=== PATIENT | male | born 1960 | race Caucasian/White ===

== ENCOUNTER 2017-09-14 07:07 | Inpatient (IN) | payer OTHER ==
[~2017-09-14] VITALS: Ht 188 cm; Wt 111.1 kg
[2017-09-14] VITALS (18 sets, daily range): BP systolic 113–208; BP diastolic 79–116
[2017-09-14] MEDS ORDERED: Sodium Chloride 500ML 500 ML IV ONE (07:29)
[2017-09-14] MEDS ORDERED: Morphine Sulfate 4mg/ml Inj IVP ONE ×3 (07:30→12:15)
--- NOTE | 2017-09-14 07:31 | Emergency Room Report ---
History of Present Illness General Chief Complaint: General Complaint Source: Patient Present Illness HPI Patient presents with complaints of mid abdominal pain radiation across both upper abdomen Pain started about 2:00 in the morning patient reports waking up out of sleep with the pain Patient reports that he has never had any surgeries before He had taken some Gas-X without any relief denies any vomiting he felt mildly nauseous denies any diarrhea denies any other trauma Denies any chest pain or shortness of breath Denies any dysuria frequency Allergies: Coded Allergies: No Known Allergies (Unverified , 09/14/17) Patient History Past Medical History: see triage record Pertinent Family History: none Reviewed Nursing Documentation: PMH: Agreed, PSxH: Agreed Nursing Documentation-PMH Past Medical History: No History, Except For Hx Hypertension: Yes Review of Systems All Other Systems: negative except mentioned in HPI Physical Exam Vital Signs Date Time Temp Pulse Resp B/P (MAP) Pulse Ox O2 Delivery O2 Flow Rate FiO2 09/14/17 07:20 97.7 85 16 186/126 98 Sp02 EP Interpretation: reviewed, normal General Appearance: mild distress - Appears uncomfortable Head: normocephalic, atraumatic Eyes: bilateral eye PERRL, bilateral eye EOMI ENT: hearing grossly normal, normal pharynx, TMs + canals normal, uvula midline Neck: full range of motion, supple, no meningismus, no bony tend Respiratory: lungs clear, normal breath sounds, no rhonchi, no respiratory distress, no retraction, no accessory muscle use Cardiovascular #1: normal peripheral pulses, regular rate, rhythm, no edema, no gallop, no JVD, no murmur Gastrointestinal: normal bowel sounds, non tender - On palpation however subjectively points across the epigastric region and bilateral abdomen, soft, no mass, no organomegaly, non-distended, no guarding, no hernia, no pulsatile mass, no rebound Genitourinary: no CVA tenderness Musculoskeletal: normal inspection Neurologic: oriented x3, responsive, communications engineer III-XII nml as tested, motor strength/ tone normal, sensory intact Psychiatric: mood/affect normal Skin: normal color, no rash, warm/dry, palpation normal Lymphatic: normal inspection, no adenopathy Medical Decision Making Diagnostic Impression: Primary Impression: Cholelithiasis Additional Impression: Intractable abdominal pain ER Course With the history exam and presentation, multiple differentials considered, including but not limited to appendicitis, gastritis, cholecystitis, diverticulitis Given the location of the pain and the patient's risk factors vascular and cardiac pathology also entertained patient's CT does not show any vascular pathology however there are multiple stones in the gallbladder Patient's liver function tests are appropriate however given the discomfort clinical impaction needs to be considered patient required multiple pain medication dosing at this time general surgery was consulted patient requires admission for further care Labs Test 09/14/17 08:03 White Blood Count 8.5 K/UL (4.8-10.8) Red Blood Count 4.64 M/UL (4.70-6.10) Hemoglobin 15.3 G/DL (14.2-18.0) Hematocrit 43.4 % (42.0-52.0) Mean Corpuscular Volume 94 FL (80-99) Mean Corpuscular Hemoglobin 33.1 PG (27.0-31.0) Mean Corpuscular Hemoglobin Concent 35.3 G/DL (32.0-36.0) Red Cell Distribution Width 11.5 % (11.6-14.8) Platelet Count 205 K/UL (150-450) Mean Platelet Volume 5.7 FL (6.5-10.1) Neutrophils (%) (Auto) 74.1 % (45.0-75.0) Lymphocytes (%) (Auto) 18.6 % (20.0-45.0) Monocytes (%) (Auto) 5.2 % (1.0-10.0) Eosinophils (%) (Auto) 0.9 % (0.0-3.0) Basophils (%) (Auto) 1.2 % (0.0-2.0) Prothrombin Time 9.8 SEC (9.30-11.50) Prothromb Time International Ratio 0.9 (0.9-1.1) Activated Partial Thromboplast Time 25 SEC (23-33) Sodium Level 142 MMOL/L (136-145) Potassium Level 4.1 MMOL/L (3.5-5.1) Chloride Level 108 MMOL/L (98-107) Carbon Dioxide Level 28 MMOL/L (21-32) Anion Gap 6 mmol/L (5-15) Blood Urea Nitrogen 17 mg/dL (7-18) Creatinine 1.2 MG/DL (0.55-1.30) Estimat Glomerular Filtration Rate > 60 mL/min (>60) Glucose Level 131 MG/DL (74-106) Calcium Level 9.1 MG/DL (8.5-10.1) Total Bilirubin 0.6 MG/DL (0.2-1.0) Aspartate Amino Transf (AST/SGOT) 25 U/L (15-37) Alanine Aminotransferase (ALT/SGPT) 46 U/L (12-78) Alkaline Phosphatase 60 U/L (46-116) Total Creatine Kinase 95 U/L (26-308) Creatine Kinase MB 2.3 NG/ML (0.0-3.6) Creatine Kinase MB Relative Index 2.4 Troponin I 0.000 ng/mL (0.000-0.056) Total Protein 7.5 G/DL (6.4-8.2) Albumin 4.1 G/DL (3.4-5.0) Globulin 3.4 g/dL Albumin/Globulin Ratio 1.2 (1.0-2.7) Lipase 136 U/L (73-393) EKG Diagnostic Results Rate: normal Rhythm: NSR ST Segments: no acute changes Rhythm Strip Diag. Results EP Interpretation: yes Rate: 77 Rhythm: NSR, no PVC's, no ectopy Chest X-Ray Diagnostic Results Chest X-Ray Diagnostic Results : Chest X-Ray Ordered: Yes # of Views/Limited/Complete: 1 View Indication: Shortness of Breath EP Interpretation: Yes Interpretation: no consolidation, no effusion, no pneumothorax, no acute cardiopulmonary disease Impression: No acute disease Electronically Signed by: Silvia Serrano DO CT/MRI/US Diagnostic Results CT/MRI/US Diagnostic Results : Impression CT abdomen pelvisImpression: Cholelithiasis. Small hiatal hernia Mild fatty liver. Question mild enteritis Normal appendix Small right inguinal hernia containing fat. Atherosclerotic vascular disease Last Vital Signs Date Time Temp Pulse Resp B/P (MAP) Pulse Ox O2 Delivery O2 Flow Rate FiO2 09/14/17 07:20 97.7 85 16 186/126 98 Status: improved Disposition: ADMITTED INPATIENT Condition: Serious SILVIA SERRANO D.O. Sep 14, 2017 07:31
[2017-09-14] MEDS ORDERED: LOSARTAN POTASS50 MG ORAL (08:10)
[2017-09-14] MEDS ORDERED: ANASTROZOLE1 MG ORAL (08:11)
[2017-09-14] MEDS ORDERED: ROSUVASTATIN CA10 MG ORAL (08:11)
[2017-09-14 08:20] LABS: BASOPHILS % (AUTO) 1.2 % (0.0-2.0); EOSINOPHILS % (AUTO) 0.9 % (0.0-3.0); LYMPHOCYTES % (AUTO) 18.6 % (20.0-45.0); MEAN CORPUSCULAR HEMOGLOBIN 33.1 PG (27.0-31.0); MEAN CORPUSCULAR HGB CONC 35.3 G/DL (32.0-36.0); MEAN CORPUSCULAR VOLUME 94 FL (80-99); MEAN PLATELET VOLUME 5.7 FL (6.5-10.1); MONOCYTES % (AUTO) 5.2 % (1.0-10.0); NEUTROPHILS % (AUTO) 74.1 % (45.0-75.0); PLATELET COUNT 205 K/UL (150-450); RED BLOOD COUNT 4.64 M/UL (4.70-6.10); RED CELL DISTRIBUTION WIDTH 11.5 % (11.6-14.8); WHITE BLOOD COUNT 8.5 K/UL (4.8-10.8)
[2017-09-14 08:22] LABS: INR 0.9 (0.9-1.1); PROTHROMBIN TIME 9.8 SEC (9.30-11.50)
[2017-09-14 08:30] LABS: ALANINE AMINOTRANSFERASE 46 U/L (12-78); ALBUMIN/GLOBULIN RATIO 1.2 (1.0-2.7); ANION GAP 6 mmol/L (5-15); ASPARTATE AMINO TRANSFERASE 25 U/L (15-37); CALCIUM 9.1 MG/DL (8.5-10.1); CARBON DIOXIDE 28 MMOL/L (21-32); CHLORIDE 108 MMOL/L (98-107); CREATININE 1.2 MG/DL (0.55-1.30); GLOMERULAR FILTRATION RATE > 60 mL/min (>60); POTASSIUM 4.1 MMOL/L (3.5-5.1); SODIUM 142 MMOL/L (136-145); TOTAL PROTEIN 7.5 G/DL (6.4-8.2)
[2017-09-14 08:39] LABS: CKMB 2.3 NG/ML (0.0-3.6); LIPASE 136 U/L (73-393)
--- NOTE | 2017-09-14 09:40 | Diagnostic Imaging Report ---
Indication: Abdominal pain Technique: Continuous helical transaxial imaging of the abdomen and pelvis was obtained from the lung bases to the pubic symphysis during intravenous contrast administration. Coronal 2-D reformats were also obtained. Study obtained in a Siemens sensation [address] Automatic Exposure Control was utilized. Total Dose length Product (DLP): [address] Dose Index Volume (CTDIvol): 0.15, 18.84 mGy Comparison: None Findings: Mild basilar atelectasis demonstrated. The liver is hypodense. Multiple gallstones are present. Spleen and adrenal glands are unremarkable. Kidneys are unremarkable. A mildly distended segment of small bowel noted in the left side of abdomen. Finding may be spurious or normal. Consider mild enteritis. The appendix is normal. There is no evidence of bowel obstruction. No free fluid or free air identified. There is a small right inguinal hernia containing fat. There is no hydronephrosis. Urinary bladder is unremarkable. Minimal calcification of aorta demonstrated. Small hiatal hernia is present. Impression: Cholelithiasis. Small hiatal hernia Mild fatty liver. Question mild enteritis Normal appendix Small right inguinal hernia containing fat. Atherosclerotic vascular disease The CT scanner at [facility] is accredited by the [employer] and the scans are performed using dose optimization techniques as appropriate to a performed exam including Automatic Exposure control.
--- NOTE | 2017-09-14 12:09 | Diagnostic Imaging Report ---
Indication: Dyspnea Comparison: None A single view chest radiograph was obtained. Findings: Cardiomediastinal appearance is within normal limits for age. Pulmonary vascularity is appropriate. The diaphragmatic contour is smooth and costophrenic angles are sharp. No pleural effusions are identified. The bones are unremarkable. Impression: No acute findings
[2017-09-14] MEDS ORDERED: Enalaprilat 2.5mg/2ml Inj IV ONE (12:15)
[2017-09-14] MEDS ORDERED: Miralax 17gm pkt ORAL PRN (13:30)
[2017-09-14] MEDS ORDERED: Nitroglycerin Subl 0.4mg tab SL PRN (13:30)
[2017-09-14] MEDS ORDERED: Mylanta II UD 30ml ORAL PRN (13:30)
[2017-09-14] MEDS ORDERED: Zosyn 3.375gm/50ml Premix 50 ML IVPB SCH ×2 (14:00→22:00)
[2017-09-14] MEDS: D5 1/2NS 1,000 ML IV SCH (14:59)
[2017-09-14] MEDS: Morphine Sulfate 4mg/ml Inj IVP PRN (14:59)
--- NOTE | 2017-09-14 15:00 | Consultation ---
DATE OF CONSULTATION: 09/14/2017 PREOPERATIVE CONSULTATION REQUESTING PHYSICIAN: Kwame Cassidy M.D. REASON FOR CONSULTATION: Abdominal pain. HISTORY OF PRESENTING ILLNESS: This is a 56-year-old male, who presented to emergency room complaining of abdominal pain since early this morning. The pain was mainly at the epigastrium and right upper quadrant with radiation to the back and now it is mainly on the right upper quadrant. He claimed that he was nauseated, but no vomiting. He stated that in the last six months, he has had two previous episodes, but it has been a mild. He does not know the aggravating factors and denies any history of jaundice. He denies fever, cough, dysuria or frequency. He has a bowel movement today. PAST MEDICAL HISTORY: He denies allergies, asthma, diabetes, cardiac and renal diseases. He has a history of hypertension. PAST SURGICAL HISTORY: None. MEDICATIONS: Please see the medicine reconciliation form. SOCIAL HISTORY: The patient is a 56-year-old male, single with no children. He is investment strategist. Denies smoking or drinking. REVIEW OF SYSTEMS: Noncontributory. PHYSICAL EXAMINATION: GENERAL: The patient appeared to be a well-developed and well-nourished 56-year-old male, lying on the bed complaining of mild abdominal pain. HEENT: Head is normocephalic and atraumatic. Eyes, pupils are equal, round, and reactive to light. Mouth is clear. NECK: There is no palpable thyromegaly or adenopathy. CHEST: Clear to auscultation and percussion. HEART: There is no gallop or murmur. S1 and S2 are within normal limits. ABDOMEN: Soft and flat with mild tenderness at right upper quadrant, but the patient has received pain medication injection. There is no palpable organomegaly. Bowel sounds are audible. GENITAL: Normal. EXTREMITIES: Within normal limits. LABORATORY AND DIAGNOSTIC DATA: CBC is normal. Chemistry is within normal limits. CAT scan of the abdomen has shown multiple gall stones. ASSESSMENT: Cholecystitis and cholelithiasis. PLAN: The patient has been scheduled for a laparoscopy cholecystectomy, possible open cholecystectomy. The risks and benefits have been explained to him. He understood and granted consent. Jada Jaimes M.D. DR: ABY JOB#: [id number] CC:
--- NOTE | 2017-09-14 15:55 | Consultation ---
History of Present Illness General Date patient seen: Sep 14, 2017 Chief Complaint: General Complaint Present Illness HPI 56 year old male presented to ER with complaints of mid abdominal pain radiation across both upper abdomen. He was diagnosed to have acute cholecystitis and will be seen by surgeon soon. Allergies: Coded Allergies: No Known Allergies (Unverified , 09/14/17) Medication History Scheduled Rosuvastatin Calcium (Rosuvastatin Calcium), 10 MG ORAL DAILY, (Reported) Miscellaneous Medications Anastrozole* (Arimidex*), 0.5 MG ORAL, (Reported) Losartan Potassium* (Losartan Potassium*), 100 MG ORAL, (Reported) Patient History Healthcare decision maker Resuscitation status Full Code Advanced Directive on File No Past Medical/Surgical History Past Medical/Surgical History: (1) History of hypertension Review of Systems Constitutional: Reports: no symptoms Eye: Reports: no symptoms Physical Exam General Appearance: WD/WN, no apparent distress Lines, tubes and drains: peripheral HEENT: normocephalic, anicteric Neck: non-tender, normal alignment Respiratory/Chest: chest wall non-tender, lungs clear Breasts: no masses Cardiovascular/Chest: normal peripheral pulses Abdomen: normal bowel sounds, soft Genitourinary/Rectal: normal genital exam Extremities: normal range of motion Skin Exam: normal pigmentation Last 24 Hour Vital Signs Date Time Temp Pulse Resp B/P (MAP) Pulse Ox O2 Delivery O2 Flow Rate FiO2 09/14/17 13:20 100.8 96 20 150/89 95 Room Air 09/14/17 12:58 97.7 95 16 165/96 96 Room Air 09/14/17 12:48 95 16 165/96 96 Room Air 09/14/17 12:23 173/106 09/14/17 11:04 175/108 09/14/17 11:04 175/108 09/14/17 10:11 95 19 178/108 96 Room Air 09/14/17 10:10 97.7 09/14/17 09:31 208/109 09/14/17 09:25 86 14 208/109 97 Room Air 09/14/17 08:32 97.7 09/14/17 07:30 76 18 173/103 100 Room Air 09/14/17 07:20 97.7 85 16 186/126 98 Intake and Output 09/14/17 09/15/17 19:00 07:00 Intake Total 500 ml Balance 500 ml Intake Oral 0 ml IV Total 500 ml Laboratory Tests Test 09/14/17 08:03 White Blood Count 8.5 K/UL (4.8-10.8) Red Blood Count 4.64 M/UL (4.70-6.10) L Hemoglobin 15.3 G/DL (14.2-18.0) Hematocrit 43.4 % (42.0-52.0) Mean Corpuscular Volume 94 FL (80-99) Mean Corpuscular Hemoglobin 33.1 PG (27.0-31.0) H Mean Corpuscular Hemoglobin Concent 35.3 G/DL (32.0-36.0) Red Cell Distribution Width 11.5 % (11.6-14.8) L Platelet Count 205 K/UL (150-450) Mean Platelet Volume 5.7 FL (6.5-10.1) L Neutrophils (%) (Auto) 74.1 % (45.0-75.0) Lymphocytes (%) (Auto) 18.6 % (20.0-45.0) L Monocytes (%) (Auto) 5.2 % (1.0-10.0) Eosinophils (%) (Auto) 0.9 % (0.0-3.0) Basophils (%) (Auto) 1.2 % (0.0-2.0) Prothrombin Time 9.8 SEC (9.30-11.50) Prothromb Time International Ratio 0.9 (0.9-1.1) Activated Partial Thromboplast Time 25 SEC (23-33) Sodium Level 142 MMOL/L (136-145) Potassium Level 4.1 MMOL/L (3.5-5.1) Chloride Level 108 MMOL/L (98-107) H Carbon Dioxide Level 28 MMOL/L (21-32) Anion Gap 6 mmol/L (5-15) Blood Urea Nitrogen 17 mg/dL (7-18) Creatinine 1.2 MG/DL (0.55-1.30) Estimat Glomerular Filtration Rate > 60 mL/min (>60) Glucose Level 131 MG/DL (74-106) H Calcium Level 9.1 MG/DL (8.5-10.1) Total Bilirubin 0.6 MG/DL (0.2-1.0) Aspartate Amino Transf (AST/SGOT) 25 U/L (15-37) Alanine Aminotransferase (ALT/SGPT) 46 U/L (12-78) Alkaline Phosphatase 60 U/L (46-116) Total Creatine Kinase 95 U/L (26-308) Creatine Kinase MB 2.3 NG/ML (0.0-3.6) Creatine Kinase MB Relative Index 2.4 Troponin I 0.000 ng/mL (0.000-0.056) Total Protein 7.5 G/DL (6.4-8.2) Albumin 4.1 G/DL (3.4-5.0) Globulin 3.4 g/dL Albumin/Globulin Ratio 1.2 (1.0-2.7) Lipase 136 U/L (73-393) Height (Feet): 6 Height (Inches): 2.00 Weight (Pounds): 245 Medications Current Medications Medications (Trade) Dose Ordered Sig/Zaid Route PRN Reason Start Time Stop Time Status Last Admin Dose Admin Acetaminophen (Tylenol) 650 mg Q4H PRN ORAL fever 09/14/17 13:30 10/14/17 13:29 09/14/17 15:07 Al Hydroxide/Mg Hydroxide (Mylanta II) 30 ml Q6H PRN ORAL dyspepsia 09/14/17 13:30 10/14/17 13:29 Dextrose (Dextrose 50%) STAT PRN IV Hypoglycemia 09/14/17 13:30 10/14/17 13:29 Dextrose/Sodium Chloride 1,000 ml @ 75 mls/hr [id number] IV 09/14/17 17:40 10/14/17 17:39 09/14/17 14:59 Diphenhydramine HCl (Benadryl) 25 mg Q6H PRN ORAL Itching/Pruritis 09/14/17 13:30 10/14/17 13:29 Heparin Sodium (Porcine) (Heparin 5000 units/ml) 5,000 units EVERY 12 HOURS SUBQ 09/14/17 21:00 10/14/17 20:59 Losartan Potassium (Cozaar) 100 mg DAILY ORAL 09/15/17 09:00 10/15/17 08:59 Morphine Sulfate (Morphine Sulfate) 4 mg Q4H PRN IVP For Pain 09/14/17 14:15 09/21/17 14:14 09/14/17 14:59 Nitroglycerin (Ntg) 0.4 mg Q5M X 3 DOSES PRN SL Prn Chest Pain 09/14/17 13:30 10/14/17 13:29 Ondansetron HCl (Zofran) 4 mg Q6H PRN IVP Nausea & Vomiting 09/14/17 13:30 10/14/17 13:29 Pantoprazole (Protonix) 40 mg DAILY IVP 09/15/17 09:00 10/15/17 08:59 Piperacillin/ Tazobactam/ Dextrose 50 ml @ 12.5 mls/hr Q8H IVPB 09/14/17 16:00 09/21/17 15:59 Polyethylene Glycol (Miralax) 17 gm HSPRN PRN ORAL Constipation 09/14/17 13:30 10/14/17 13:29 Temazepam (Restoril) 15 mg HSPRN PRN ORAL Insomnia 09/14/17 13:30 09/21/17 13:29 Assessment/Plan Problem List: (1) Cholecystitis ICD Codes: K81.9 - Cholecystitis, unspecified SNOMED: 73372992 (2) Intractable abdominal pain ICD Codes: R10.9 - Unspecified abdominal pain SNOMED: 27797922, 314450217 (3) History of hypertension ICD Codes: Z86.79 - Personal history of other diseases of the circulatory system SNOMED: 636124878 Assessment/Plan NPO IV fluids IV abx awaiting surgery consult dvt prophylaxis monitor BP RACH NIELSON Sep 14, 2017 15:55
[2017-09-14] MEDS: Zosyn 3.375gm/50ml Premix 50 ML IVPB SCH (16:34)
--- NOTE | 2017-09-14 16:48 | Consultation ---
Consult Note Consult Note id dic # [id number] TRACY SERVIN M.D. Sep 14, 2017 16:48
--- NOTE | 2017-09-14 17:36 | GI Initial Consult Note ---
History of Present Illness General Date patient seen: Sep 14, 2017 Time patient seen: 17:32 Reason for Hospitalization: General Complaint Referring physician: RACH YODER Reason for Consultation: ABDOMINAL PAIN Present Illness HPI Patient presents with complaints of mid abdominal pain radiation across both upper abdomen Pain started about 2:00 in the morning patient reports waking up out of sleep with the pain Patient reports that he has never had any surgeries before He had taken some Gas-X without any relief denies any vomiting he felt mildly nauseous denies any diarrhea denies any other trauma Denies any chest pain or shortness of breath Denies any dysuria frequency This is a 56-year-old male, who presented to emergency room complaining of abdominal pain since early this morning. The pain was mainly at the epigastrium and right upper quadrant with radiation to the back and now it is mainly on the right upper quadrant. He claimed that he was nauseated, but no vomiting. He stated that in the last six months, he has had two previous episodes, but it has been a mild. He does not know the aggravating factors and denies any history of jaundice. He denies fever, cough, dysuria or frequency. He has a bowel movement today. Pt NPO now awaiting lap fidel. Pt seen on floor, awake A&Ox4 NAD with no active s/sx of N/V/D. CT AP reviewed. Unknown history of endoscopic/colonoscopies. Home Meds Reported Medications Rosuvastatin Calcium (Rosuvastatin Calcium) 10 Mg Tablet, 10 MG ORAL DAILY 09/14/17 Anastrozole* (ARIMIDEX*) 1 Mg Tablet, 0.5 MG ORAL 09/14/17 Losartan Potassium* (LOSARTAN POTASSIUM*) 50 Mg Tablet, 100 MG ORAL 09/14/17 Med list reviewed/reconciled: Yes Allergies: Coded Allergies: No Known Allergies (Unverified , 09/14/17) Patient History History Provided By: Patient, Medical Record H Narrative PAST MEDICAL HISTORY: He denies allergies, asthma, diabetes, cardiac and renal diseases. He has a history of hypertension. Review of Systems All Other Systems: negative except mentioned in HPI Physical Exam Vital Signs Date Time Temp Pulse Resp B/P (MAP) Pulse Ox O2 Delivery O2 Flow Rate FiO2 09/14/17 07:20 97.7 85 16 186/126 98 09/14/17 07:30 Room Air Sp02 EP Interpretation: reviewed, normal Labs Laboratory Tests Test 09/14/17 08:03 White Blood Count 8.5 K/UL (4.8-10.8) Red Blood Count 4.64 M/UL (4.70-6.10) L Hemoglobin 15.3 G/DL (14.2-18.0) Hematocrit 43.4 % (42.0-52.0) Mean Corpuscular Volume 94 FL (80-99) Mean Corpuscular Hemoglobin 33.1 PG (27.0-31.0) H Mean Corpuscular Hemoglobin Concent 35.3 G/DL (32.0-36.0) Red Cell Distribution Width 11.5 % (11.6-14.8) L Platelet Count 205 K/UL (150-450) Mean Platelet Volume 5.7 FL (6.5-10.1) L Neutrophils (%) (Auto) 74.1 % (45.0-75.0) Lymphocytes (%) (Auto) 18.6 % (20.0-45.0) L Monocytes (%) (Auto) 5.2 % (1.0-10.0) Eosinophils (%) (Auto) 0.9 % (0.0-3.0) Basophils (%) (Auto) 1.2 % (0.0-2.0) Prothrombin Time 9.8 SEC (9.30-11.50) Prothromb Time International Ratio 0.9 (0.9-1.1) Activated Partial Thromboplast Time 25 SEC (23-33) Sodium Level 142 MMOL/L (136-145) Potassium Level 4.1 MMOL/L (3.5-5.1) Chloride Level 108 MMOL/L (98-107) H Carbon Dioxide Level 28 MMOL/L (21-32) Anion Gap 6 mmol/L (5-15) Blood Urea Nitrogen 17 mg/dL (7-18) Creatinine 1.2 MG/DL (0.55-1.30) Estimat Glomerular Filtration Rate > 60 mL/min (>60) Glucose Level 131 MG/DL (74-106) H Calcium Level 9.1 MG/DL (8.5-10.1) Total Bilirubin 0.6 MG/DL (0.2-1.0) Aspartate Amino Transf (AST/SGOT) 25 U/L (15-37) Alanine Aminotransferase (ALT/SGPT) 46 U/L (12-78) Alkaline Phosphatase 60 U/L (46-116) Total Creatine Kinase 95 U/L (26-308) Creatine Kinase MB 2.3 NG/ML (0.0-3.6) Creatine Kinase MB Relative Index 2.4 Troponin I 0.000 ng/mL (0.000-0.056) Total Protein 7.5 G/DL (6.4-8.2) Albumin 4.1 G/DL (3.4-5.0) Globulin 3.4 g/dL Albumin/Globulin Ratio 1.2 (1.0-2.7) Lipase 136 U/L (73-393) General Appearance: well appearing, no apparent distress, alert Head: normocephalic EENT: PERRL/EOMI, normal ENT inspection Neck: supple Respiratory: normal breath sounds, no respiratory distress Cardiovascular: normal rate Gastrointestinal: normal inspection, non tender, soft, normal bowel sounds, non -distended Rectal: deferred Genitourinary: deferred Musculoskeletal: normal inspection, back normal Neurologic: normal inspection, alert, oriented x3, responsive Psychiatric: normal inspection, judgement/insight normal, memory normal Skin: normal inspection, normal color, no rash, warm/dry, palpation normal, well hydrated Lymphatic: normal inspection, no adenopathy Current Medications Current Medications Medications (Trade) Dose Ordered Sig/Zaid Route PRN Reason Start Time Stop Time Status Last Admin Dose Admin Acetaminophen (Tylenol) 650 mg Q4H PRN ORAL fever 09/14/17 13:30 10/14/17 13:29 09/14/17 15:07 Al Hydroxide/Mg Hydroxide (Mylanta II) 30 ml Q6H PRN ORAL dyspepsia 09/14/17 13:30 10/14/17 13:29 Clonidine HCl (Catapres) 0.1 mg Q6HR PRN ORAL SBP > 160 09/14/17 16:15 10/14/17 16:14 09/14/17 16:48 Dextrose (Dextrose 50%) STAT PRN IV Hypoglycemia 09/14/17 13:30 10/14/17 13:29 Dextrose/Sodium Chloride 1,000 ml @ 75 mls/hr [id number] IV 09/14/17 17:40 10/14/17 17:39 09/14/17 14:59 Diphenhydramine HCl (Benadryl) 25 mg Q6H PRN ORAL Itching/Pruritis 09/14/17 13:30 10/14/17 13:29 Heparin Sodium (Porcine) (Heparin 5000 units/ml) 5,000 units EVERY 12 HOURS SUBQ 09/14/17 21:00 10/14/17 20:59 Losartan Potassium (Cozaar) 100 mg DAILY ORAL 09/15/17 09:00 10/15/17 08:59 Morphine Sulfate (Morphine Sulfate) 4 mg Q4H PRN IVP For Pain 09/14/17 14:15 09/21/17 14:14 09/14/17 14:59 Nitroglycerin (Ntg) 0.4 mg Q5M X 3 DOSES PRN SL Prn Chest Pain 09/14/17 13:30 10/14/17 13:29 Ondansetron HCl (Zofran) 4 mg Q6H PRN IVP Nausea & Vomiting 09/14/17 13:30 10/14/17 13:29 Pantoprazole (Protonix) 40 mg DAILY IVP 09/15/17 09:00 10/15/17 08:59 Piperacillin/ Tazobactam/ Dextrose 50 ml @ 12.5 mls/hr Q8H IVPB 09/14/17 16:00 09/21/17 15:59 09/14/17 16:34 Polyethylene Glycol (Miralax) 17 gm HSPRN PRN ORAL Constipation 09/14/17 13:30 10/14/17 13:29 Temazepam (Restoril) 15 mg HSPRN PRN ORAL Insomnia 09/14/17 13:30 09/21/17 13:29 GI: Plan Problems: (1) Cholelithiasis (2) Intractable abdominal pain Plan fu surgical recs >> pt scheduled for lap fidel today maintain NPO + IVFs pain mgmt ppi cont ppi bowel regime fu labs outpatient GI procedures Discussed with Dr. Vaughn. Thank you for this patient referral, we will follow. Tyesha Hawthorne N.P. Sep 14, 2017 17:36
[2017-09-14] MEDS ORDERED: Propofol 200mg/20ml IV ONE (17:45)
[2017-09-14] MEDS ORDERED: Dexamethasone 4mg/ml vial ONE (17:45)
[2017-09-14] MEDS ORDERED: LR 1000ml ONE (17:45)
[2017-09-14] MEDS ORDERED: Lidocaine 1% MPF 10mg/ml 5ml ONE (17:45)
[2017-09-14] MEDS ORDERED: fentaNYL 100 mcg/2 mL IV ONE (17:45)
[2017-09-14] MEDS ORDERED: Glycopyrrolate 0.2mg/ml 1ml Vial ONE (17:45)
[2017-09-14] MEDS ORDERED: Zemuron 50mg/5ml Inj IV ONE (17:45)
[2017-09-14] MEDS ORDERED: NS Irrig 1000ml ONE (17:45)
[2017-09-14] MEDS ORDERED: Neostigmine 1mg/ml 10ml Inj ONE (17:45)
[2017-09-14] MEDS ORDERED: Alfentanil 2ml Inj ONE (17:45)
[2017-09-14] MEDS ORDERED: LR 1000ml 1,000 ML IVLG SCH (17:47)
--- NOTE | 2017-09-14 17:47 | Anethesia Preoperative Eval ---
Anesthesia Pre-op PMH/ROS General Date of Evaluation: Sep 14, 2017 Time of Evaluation: 17:46 Anesthesiologist: Wilmer ASA Score: ASA 3 - Emergency Mallampati Score Class I : Soft palate, uvula, fauces, pillars visible Class II: Soft palate, uvula, fauces visible Class III: Soft palate, base of uvula visible Class IV: Only hard plate visible Mallampati Classification: Class II Surgeon: Fiona Diagnosis: Acute Cholecystitis Anesthesia History: none Family History: no anesthesia problems Allergies: Coded Allergies: No Known Allergies (Unverified , 09/14/17) Medications: see eMAR Past Medical History Cardiovascular: Reports: HTN Other: obesity - BMI 33 Anesthesia Pre-op Phys. Exam Physician Exam Last Vital Signs Date Time Temp Pulse Resp B/P (MAP) Pulse Ox O2 Delivery O2 Flow Rate FiO2 09/14/17 16:48 161/116 09/14/17 16:16 99.0 104 21 96 Room Air Constitutional: NAD Neurologic: CN 2-12 intact Cardiovascular: RRR Respiratory: CTA Gastrointestinal: S/NT/ND Airway Exam Mallampati Score: Class II MO: limited ROM: limited Teeth: intact Anesthesia Pre-op A/P Labs Hematology Test 09/14/17 08:03 White Blood Count 8.5 K/UL (4.8-10.8) Red Blood Count 4.64 M/UL (4.70-6.10) L Hemoglobin 15.3 G/DL (14.2-18.0) Hematocrit 43.4 % (42.0-52.0) Mean Corpuscular Volume 94 FL (80-99) Mean Corpuscular Hemoglobin 33.1 PG (27.0-31.0) H Mean Corpuscular Hemoglobin Concent 35.3 G/DL (32.0-36.0) Red Cell Distribution Width 11.5 % (11.6-14.8) L Platelet Count 205 K/UL (150-450) Mean Platelet Volume 5.7 FL (6.5-10.1) L Neutrophils (%) (Auto) 74.1 % (45.0-75.0) Lymphocytes (%) (Auto) 18.6 % (20.0-45.0) L Monocytes (%) (Auto) 5.2 % (1.0-10.0) Eosinophils (%) (Auto) 0.9 % (0.0-3.0) Basophils (%) (Auto) 1.2 % (0.0-2.0) Coagulation Test 09/14/17 08:03 Prothrombin Time 9.8 SEC (9.30-11.50) Prothromb Time International Ratio 0.9 (0.9-1.1) Activated Partial Thromboplast Time 25 SEC (23-33) Chemistry Test 09/14/17 08:03 Sodium Level 142 MMOL/L (136-145) Potassium Level 4.1 MMOL/L (3.5-5.1) Chloride Level 108 MMOL/L (98-107) H Carbon Dioxide Level 28 MMOL/L (21-32) Anion Gap 6 mmol/L (5-15) Blood Urea Nitrogen 17 mg/dL (7-18) Creatinine 1.2 MG/DL (0.55-1.30) Estimat Glomerular Filtration Rate > 60 mL/min (>60) Glucose Level 131 MG/DL (74-106) H Calcium Level 9.1 MG/DL (8.5-10.1) Total Bilirubin 0.6 MG/DL (0.2-1.0) Aspartate Amino Transf (AST/SGOT) 25 U/L (15-37) Alanine Aminotransferase (ALT/SGPT) 46 U/L (12-78) Alkaline Phosphatase 60 U/L (46-116) Total Creatine Kinase 95 U/L (26-308) Creatine Kinase MB 2.3 NG/ML (0.0-3.6) Creatine Kinase MB Relative Index 2.4 Troponin I 0.000 ng/mL (0.000-0.056) Total Protein 7.5 G/DL (6.4-8.2) Albumin 4.1 G/DL (3.4-5.0) Globulin 3.4 g/dL Albumin/Globulin Ratio 1.2 (1.0-2.7) Lipase 136 U/L (73-393) Risk Assessment & Plan Assessment: ASA 3E Plan: GA, BIS, GlideScope Status Change Before Surgery: No Pre-Antibiotics Dru Grams Ancef IV Given Within 1 Hr of Incision: Yes Time Given: 18:02 Eder Guillen MD Sep 14, 2017 17:47
--- NOTE | 2017-09-14 17:51 | Pre-Procedure Note/Attestation ---
Pre-Procedure Note/Attestation Complete Prior to Procedure Planned Procedure: not applicable Procedure Narrative: Laparoscopic Cholecystectomy possible open Cholecystectomy Indications for Procedure Pre-Operative Diagnosis: Cholecystitis & Cholelithiasis Attestation I attest that I discussed the nature of the procedure; its benefits; risks and complications; and alternatives (and the risks and benefits of such alternatives ), prior to the procedure, with the patient (or the patient's legal guest experience representative). I attest that, if there was a reasonable possibility of needing a blood transfusion, the patient (or the patient's legal guest experience representative) was given the [facility] standardized written summary, pursuant to the Aditya Arlen Blood Safety Act ([place] Health and Safety Code # 1645, as amended). I attest that I re-evaluated the patient just prior to the surgery and that there has been no change in the patient's H&P, except as documented below: EMILY ABREU Sep 14, 2017 17:51
[2017-09-14] MEDS ORDERED: NS Irrig 1000ml IRRIG ONE (17:55)
[2017-09-14] MEDS ORDERED: Bupivacaine 0.25% Inj 30ml INJ ONE (17:59)
[2017-09-14] MEDS ORDERED: Metoclopramide 10mg/2ml Inj IVP PRN (18:00)
[2017-09-14] MEDS ORDERED: Norco 5mg/325mg tab ORAL PRN (18:00)
[2017-09-14] MEDS ORDERED: Ketorolac 30mg Inj IV PRN (18:00)
[2017-09-14] MEDS ORDERED: Hydromorphone 0.5mg/0.5ml inj IVP PRN (18:00)
[2017-09-14] MEDS ORDERED: oxyCODONE HCL/Acetaminophen 5/325mg ORAL PRN (18:00)
[2017-09-14] MEDS ORDERED: Atropine Inj 1mg/10ml Syr IV PRN (18:00)
[2017-09-14] MEDS ORDERED: DiphenhydrAMINE 50mg/ml Inj IVP PRN (18:00)
[2017-09-14] MEDS ORDERED: fentaNYL 100 mcg/2 mL IV PRN (18:00)
[2017-09-14] MEDS ORDERED: Midazolam 2mg/2ml Inj IVP PRN (18:00)
[2017-09-14] MEDS ORDERED: Ketorolac 60mg Inj IV PRN (18:00)
[2017-09-14] MEDS ORDERED: LORazepam Inj 2mg/ml 1ml IV PRN (18:00)
[2017-09-14] MEDS ORDERED: Norco 7.5mg/325mg tab ORAL PRN (18:00)
[2017-09-14] MEDS ORDERED: Acetaminophen (Non formulary) 100 ML IV ONE (18:15)
--- NOTE | 2017-09-14 19:16 | History & Physical ---
History and Physical History & Physicial Dictated for Int Med-Dr Cassidy no. [id number]. KAILEE LOONEY Sep 14, 2017 19:16
--- NOTE | 2017-09-14 19:22 | Brief Operative Note ---
Immediate Post Operative Note Operative Note Pre-op Diagnosis: Cholecystitis & Cholelithiasis Procedure: Laparoscopic Cholecystectomy Post-op Diagnosis: Hydropse of gallbladder Surgeon: MD Danna Brush Holder Assembler: none Anesthesiologist: Dr. Joy Anesthesia: general Specimen: yes Complications: none Condition: stable Fluids: per anesthesialogist Estimated Blood Loss: minimal Drains: none Implant(s) used?: No EMILY ABREU Sep 14, 2017 19:22
--- NOTE | 2017-09-14 19:29 | Immediate Post-Op Evaluation ---
Immediate Post-Op Evalulation Immediate Post-Op Evalulation Procedure: Laparoscopic Cholecystectomy Date of Evaluation: Sep 14, 2017 Time of Evaluation: 19:40 IV Fluids: 800 NS Blood Products: 0 Estimated Blood Loss: 20 Urinary Output: 0 Blood Pressure Systolic: 135 Blood Pressure Diastolic: 84 Pulse Rate: 109 Respiratory Rate: 16 O2 Sat by Pulse Oximetry: 94 Temperature (Fahrenheit): 99 Pain Score (1-10): 2 Nausea: No Vomiting: No Complications 0 Patient Status: awake, reacts, patent, extubated, none Hydration Status: adequate Dru Gram Ancef IV Given Within 1 Hr of Incision: Yes Time Given: 18:02 Eder Guillen MD Sep 14, 2017 19:29
[2017-09-14] MEDS ORDERED: HYDROmorphone 1mg/ml Carpuject IVP PRN (19:30)
[2017-09-14] MEDS ORDERED: Acetaminophen 650 MG SUPP RECTAL PRN (19:30)
[2017-09-14] MEDS: Potassium Chloride 20 MEQ in 1/2 NS 1000ml 1,000 ML IV SCH (20:30)
--- NOTE | 2017-09-14 21:15 | Operative Note - Dictated ---
DATE OF OPERATION: 09/14/2017 PREOPERATIVE DIAGNOSES: Cholecystitis and cholelithiasis. POSTOPERATIVE DIAGNOSES: 1. Cholelithiasis. 2. Hydrops with impacted stone in the neck. OPERATION: Laparoscopic cholecystectomy. COMPLICATION: None. SURGEON: Jada Jaimes M.D. CLOSING SPECIALIST: None. ANESTHESIA: General with endotracheal tube. ANESTHESIOLOGIST: Eder Guillen M.D. INDICATION: This is a 56-year-old male, who presented to emergency room complaining of abdominal pain from early this morning. This pain was in the epigastrium and right upper quadrant with radiation to his back and was associated with nausea. Physical examination showed mild tenderness at right upper quadrant. CAT scan of the abdomen showed cholelithiasis. CBC and chemistry was normal. The patient was started on conservative treatment, but he continued complaining of pain, so the decision was made for a laparoscopic cholecystectomy, possible open cholecystectomy. DESCRIPTION OF PROCEDURE: The patient was placed supine on the operating table and after general anesthesia with endotracheal tube, the abdomen was properly prepped and draped. Initially, a small incision was given below the umbilicus through which the Veress needle was introduced into the intraperitoneal cavity. This cavity was insufflated up to 15 mmHg. The Veress needle was removed and a 5 mm trocar was placed in the intraperitoneal cavity through the incision below the umbilicus. Laparoscopic camera was introduced into the intraperitoneal cavity through the trocar below the umbilicus. Under direct vision, the working trocar was placed at the epigastrium and 5 mm trocars were placed at the right upper quadrant and right flank. Initially, rapid exploration was performed which showed the diaphragms to be normal. The part of the stomach which could be seen was normal and liver had mild fatty infiltrate and the gallbladder was distended and inflamed. The bowels were covered with omentum. Initially, the gallbladder was severely distended. It was aspirated with the help of the endoscopy needle, which showed very light bile showing the beginning of the hydrops. Fundus of the gallbladder was grasped with a grasper from the trocar site at the right flank and the fundus was retracted cephalad and lateral. At this time, it was noticed that there was a very large stone impacted in the neck of the gallbladder. With difficulty, we managed to finally move that stone from the neck and the neck was grasped with another grasper and Calot's triangle was exposed. The neck of the gallbladder was flapped over the hilum of the gallbladder. This was lifted up and then gradually, blunt dissection was performed at the Calot's triangle and finally the cystic duct was identified and isolated. The junction to the gallbladder was exposed. Then, the cystic duct was doubly ligated with a hemoclip and was transected. The cystic artery was dissected and it was doubly ligated with a hemoclip and was transected. After this, the gallbladder was gradually released from the gallbladder bed towards the fundus and was completely removed from the gallbladder bed. The gallbladder contained few very large stones and to remove it from the intraperitoneal cavity, we had to extend the incision in epigastrium. Finally, the gallbladder was removed from the intraperitoneal cavity through the incision at epigastrium, but during the process, the gallbladder ruptured and the stones were released, so all the stones were gradually removed. Another exploration was performed. There was no bleeding or complication and there was no more retained stone. The intraperitoneal cavity was thoroughly irrigated with antibiotic solution and then another exploration was performed. The trocars were removed under direct vision. The incision at the fascia at the epigastrium was approximated with running suture of #0 Vicryl. The incision at the epigastrium was thoroughly irrigated with antibiotic solution and Betadine and then the incisions were infiltrated with total of 30 mL of Marcaine 0.25%. The subcutaneous tissue was approximated with 4-0 chromic. The skin incisions were approximated with running subcuticular suture of 4-0 chromic. The patient tolerated the procedure very well and was transferred to recovery room in stable condition and extubated. The sponge and needle count were correct. Estimated blood loss is about 5 mL. Condition of the patient at the end of procedure is stable. Jada Jaimes M.D. DR: MILI JOB#: [id number] CC:
--- NOTE | 2017-09-14 22:30 | Consultation ---
DATE OF CONSULTATION: 09/14/2017 INFECTIOUS DISEASES CONSULTATION CONSULTING PHYSICIAN: Kris Sibley M.D. REQUESTING PHYSICIAN: Kwame Cassidy M.D. REASON FOR CONSULTATION: Evaluation of the patient for cholecystitis, fever, and possible need for antibiotics. HISTORY OF PRESENT ILLNESS: The patient is a 56-year-old male with no significant past medical history who was admitted to this medical center due to abdominal pain started this morning mostly in the upper abdomen that later localized mostly in the right upper quadrant. CT scan showed evidence of cholelithiasis. A surgical consultation has been requested and there is a plan for cholecystectomy later today. Infectious Disease consultation has been requested for further evaluation of the patient and antibiotic management. PAST MEDICAL HISTORY: Hypertension. MEDICATIONS: Zosyn. ALLERGIES: No known drug allergies. SOCIAL HISTORY: The patient lives at home. FAMILY HISTORY: Noncontributory. REVIEW OF SYSTEMS: HEENT: No recent change in vision or hearing. PULMONARY: No cough or shortness of breath. CARDIOVASCULAR: No chest pain or palpitations. GASTROINTESTINAL/ABDOMEN: As mentioned above. The patient feels nauseous. No vomiting or diarrhea. EXTREMITIES: No cyanosis. GENITOURINARY: No dysuria. PHYSICAL EXAMINATION: VITAL SIGNS: Temperature 100.8 degrees, pulse 86, respiratory rate 18, and blood pressure 161/116. HEENT: No pale conjunctivae. No icterus. NECK: No lymphadenopathy. CHEST: Clear. HEART: S1 and S2. ABDOMEN: Soft, obese. Mild right upper quadrant tenderness. EXTREMITIES: No cyanosis. LABORATORY AND DIAGNOSTIC DATA: WBC 8.5, hemoglobin 13, and platelets 205. BUN 17 and creatinine 1.2. Liver function tests are unremarkable. CT scan of the abdomen showed cholelithiasis. ASSESSMENT: The patient is a 56-year-old male with: 1. Right upper quadrant tenderness. 2. Possible cholecystitis. 3. Cholelithiasis. 4. Low-grade fever. PLAN: 1. We will continue the patient on IV Zosyn. 2. Monitor CBC. 3. Monitor BMP. 4. Monitor amylase and lipase. 5. We will follow. 6. Plan of cholecystectomy as per surgeon. 7. Based on patient's clinical course and labs, we will do further recommendation. Thank you, Dr. Chand, for allowing me to participate in the care of this patient. I will follow the patient with you during this hospitalization. Kris Sibley M.D. DR: PABLO JOB#: [id number] CC:
[2017-09-14] MEDS: Metoclopramide 10mg/2ml Inj IM SCH (22:34)
[2017-09-14] MEDS: Pantoprazole Inj IVP SCH (22:34)
[2017-09-14] MEDS: Heparin 5000 units/ml inj SUBQ SCH (22:36)
[2017-09-15] VITALS: BP 127/81
--- NOTE | 2017-09-15 | History and Physical Report ---
DATE OF ADMISSION: 09/14/2017 CHIEF COMPLAINT: The patient is a 56-year-old white male, who presents with a chief complaint of abdominal pain. HISTORY OF PRESENT ILLNESS: It began last evening. The patient began to experience bilateral upper quadrant pain. The patient denies nausea or vomiting. The pain awoke the patient from sleep. The patient took Mylicon without relief. The patient presented to [facility]. The patient was admitted for abdominal pain to rule out cholelithiasis. PAST MEDICAL HISTORY: Significant for: 1. Hypertension. 2. Hypercholesterolemia. PAST SURGICAL HISTORY: The patient denies. CURRENT MEDICATIONS: 1. Rosuvastatin 10 mg one tablet p.o. daily at bedtime. 2. Losartan 100 mg one tablet p.o. daily. 3. Arimidex 1 mg one tablet p.o. daily. ALLERGIES: No known drug allergies. SOCIAL HISTORY: The patient is single. The patient denies tobacco or alcohol use. REVIEW OF SYSTEMS: CONSTITUTIONAL: The patient denies weight loss or weight gain. The patient denies fevers or chills. HEENT: The patient denies ear or throat pain. The patient denies headache. CARDIOVASCULAR: The patient denies palpitations or chest pain. CHEST: The patient denies wheezing or shortness of breath. ABDOMINAL: The patient complains of bilateral upper quadrant pain as above. The patient denies nausea, vomiting, diarrhea, or constipation. GENITOURINARY: The patient denies dysuria or increased frequency of urination. NEUROMUSCULAR: The patient denies seizures or generalized weakness. PHYSICAL EXAMINATION: VITAL SIGNS: Temperature 97.7, respirations 16, pulse 95, and blood pressure 165/96. GENERAL: The patient is a well-developed, well-nourished, white male, in no apparent distress. HEENT: Eyes, pupils are equal and responsive to light and accommodation. Extraocular movements are intact. NECK: Supple without lymphadenopathy. CHEST: Lungs are clear to auscultation bilaterally without wheezes or rales. CARDIOVASCULAR: Regular rate. S1 and S2 are normal without murmurs, rubs, or gallops. ABDOMEN: Soft, nontender, and nondistended with decreased bowel sounds. There is pain to palpation in bilateral upper quadrants. There is no rebound or guarding. EXTREMITIES: Negative for clubbing, cyanosis, or edema. RECTAL: Refused. GENITAL: Refused. NEUROLOGIC: Cranial nerves II to XII are grossly intact without focal deficits. Motor strength is 5/5 bilaterally. DTR reflexes are 2+ plantar. LABORATORY STUDIES: WBC is 8.5, hemoglobin 15.3, hematocrit 43.4, and platelets 205,000. Sodium is 142, potassium 4.1, chloride 108, CO2 28, BUN 17, creatinine 1.2, and glucose 131. DIAGNOSTIC DATA: A CT scan of the abdomen revealed cholelithiasis. ASSESSMENT: This is a 56-year-old white male: 1. Abdominal pain. 2. Cholelithiasis. 3. Hypertension. 4. Hypercholesterolemia. TREATMENT: 1. Cholelithiasis. A Surgery consultation has been obtained with Dr. Jaimes. We will follow recommendation of Surgery. A Gastroenterology consultation has been obtained with Dr. Mac Vaughn. 2. Hypertension. Continue losartan as above. 3. Hypercholesteremia. Continue simvastatin as above. Jorge Foster M.D. DR: Gaudencio JOB#: [id number] CC:
[2017-09-15] MEDS: Morphine Sulfate 4mg/ml Inj IVP PRN (00:19)
[2017-09-15] MEDS: Zosyn 3.375gm/50ml Premix 50 ML IVPB SCH ×2 (00:20→08:27)
[2017-09-15 04:00] VITALS: BP 110/66
[2017-09-15] MEDS: Potassium Chloride 20 MEQ in 1/2 NS 1000ml 1,000 ML IV SCH (06:32)
[2017-09-15] MEDS: Metoclopramide 10mg/2ml Inj IM SCH ×2 (06:36→14:00)
[2017-09-15] MEDS: D5 1/2NS 1,000 ML IV SCH (07:08)
[2017-09-15 07:23] LABS: ALANINE AMINOTRANSFERASE 87 U/L (12-78); ALBUMIN/GLOBULIN RATIO 1.1 (1.0-2.7); AMYLASE 48 U/L (25-115); ANION GAP 10 mmol/L (5-15); ASPARTATE AMINO TRANSFERASE 56 U/L (15-37); CALCIUM 8.8 MG/DL (8.5-10.1); CARBON DIOXIDE 23 MMOL/L (21-32); CHLORIDE 103 MMOL/L (98-107); CREATININE 1.4 MG/DL (0.55-1.30); GLOMERULAR FILTRATION RATE 52.8 mL/min (>60); LIPASE 80 U/L (73-393); POTASSIUM 4.5 MMOL/L (3.5-5.1); SODIUM 136 MMOL/L (136-145); TOTAL PROTEIN 7.3 G/DL (6.4-8.2)
[2017-09-15 07:39] LABS: BILIRUBIN,DIRECT 0.2 MG/DL (0.0-0.3)
[2017-09-15 07:45] LABS: MEAN CORPUSCULAR HEMOGLOBIN 30.7 PG (27.0-31.0); MEAN CORPUSCULAR HGB CONC 32.9 G/DL (32.0-36.0); MEAN CORPUSCULAR VOLUME 93 FL (80-99); MEAN PLATELET VOLUME 5.7 FL (6.5-10.1); PLATELET COUNT 205 K/UL (150-450); RED BLOOD COUNT 4.68 M/UL (4.70-6.10); RED CELL DISTRIBUTION WIDTH 11.4 % (11.6-14.8)
[2017-09-15 08:00] VITALS: BP 119/81
[2017-09-15] MEDS: Pantoprazole Inj IVP SCH (08:27)
[2017-09-15] MEDS: Heparin 5000 units/ml inj SUBQ SCH (08:34)
[2017-09-15] MEDS ORDERED: Losartan 50mg tab ORAL SCH (09:00)
[2017-09-15] MEDS ORDERED: Pantoprazole Inj IVP SCH (09:00)
[2017-09-15 09:47] LABS: BAND NEUTROPHILS % (MANUAL) 0 % (0-8); BASOPHILS % (MANUAL) 0 % (0-2); EOSINOPHILS % (MANUAL) 0 % (0-3); LYMPHOCYTES % (MANUAL) 8 % (20-45); NEUTROPHILS % (MANUAL) 90 % (45-75); PLATELET ESTIMATE ADEQUATE; PLATELET MORPHOLOGY NORMAL; TOTAL CELLS COUNTED 100
--- NOTE | 2017-09-15 10:09 | Infectious Diseases Prog Note ---
Assessment/Plan Assessment/Plan ASSESSMENT: The patient is a 56-year-old male with: Cholelithiasis , Hydropic gallbladder SP lap-fidel SP Right upper quadrant tenderness Low-grade fever, SP mils transaminitis Afebrile PLAN: DC IV Zosyn d# 2 , after last dose today Monitor CBC Monitor BMP Monitor amylase and lipase, LFT Subjective Allergies: Coded Allergies: No Known Allergies (Unverified , 09/14/17) Subjective post op d# 1 Objective Vital Signs Last 24 Hour Vital Signs Date Time Temp Pulse Resp B/P (MAP) Pulse Ox O2 Delivery O2 Flow Rate FiO2 09/15/17 08:26 120/75 09/15/17 08:00 98.1 83 20 119/81 99 Nasal Cannula 2.0 09/15/17 07:43 Nasal Cannula 3.0 32 09/15/17 07:43 95 Nasal Cannula 3.0 32 09/15/17 04:00 97.8 69 17 110/66 96 Nasal Cannula 2.0 09/15/17 00:00 97.7 86 18 127/81 96 Nasal Cannula 3.0 09/14/17 21:50 97.1 89 19 150/95 98 Nasal Cannula 3.0 09/14/17 21:20 97.5 82 19 134/91 96 Nasal Cannula 3.0 09/14/17 21:05 97.4 86 19 135/96 96 Nasal Cannula 3.0 09/14/17 20:50 97.3 84 19 134/88 97 Nasal Cannula 3.0 09/14/17 20:35 97.2 85 19 140/92 93 Nasal Cannula 2.0 09/14/17 20:25 98.0 93 19 139/89 95 Nasal Cannula 3.0 09/14/17 20:15 94 16 142/85 96 Nasal Cannula 3.0 09/14/17 20:00 Nasal Cannula 3.0 32 09/14/17 20:00 98 18 130/97 96 Nasal Cannula 3.0 09/14/17 20:00 96 Nasal Cannula 3.0 32 09/14/17 19:50 89 16 145/85 97 Nasal Cannula 3.0 09/14/17 19:39 91 15 140/87 97 Nasal Cannula 3.0 09/14/17 19:34 92 16 136/79 98 Simple Mask 6.0 09/14/17 19:29 99.0 108 17 113/84 95 Simple Mask 6.0 09/14/17 19:29 109 16 94 09/14/17 16:48 161/116 09/14/17 16:16 99.0 104 21 161/116 96 Room Air 09/14/17 16:06 99.0 09/14/17 13:20 100.8 96 20 150/89 95 Room Air 09/14/17 12:58 97.7 95 16 165/96 96 Room Air 09/14/17 12:48 95 16 165/96 96 Room Air 09/14/17 12:23 173/106 09/14/17 11:04 175/108 09/14/17 11:04 175/108 09/14/17 10:11 95 19 178/108 96 Room Air 09/14/17 10:10 97.7 Height (Feet): 6 Height (Inches): 2.00 Weight (Pounds): 245 HEENT: mucous membranes moist Respiratory/Chest: no accessory muscle use Cardiovascular: regularly irregular Abdomen: no organomegaly Laboratory Tests Test 09/15/17 06:25 White Blood Count 12.0 K/UL (4.8-10.8) H Red Blood Count 4.68 M/UL (4.70-6.10) L Hemoglobin 14.4 G/DL (14.2-18.0) Hematocrit 43.7 % (42.0-52.0) Mean Corpuscular Volume 93 FL (80-99) Mean Corpuscular Hemoglobin 30.7 PG (27.0-31.0) Mean Corpuscular Hemoglobin Concent 32.9 G/DL (32.0-36.0) Red Cell Distribution Width 11.4 % (11.6-14.8) L Platelet Count 205 K/UL (150-450) Mean Platelet Volume 5.7 FL (6.5-10.1) L Neutrophils (%) (Auto) % (45.0-75.0) Lymphocytes (%) (Auto) % (20.0-45.0) Monocytes (%) (Auto) % (1.0-10.0) Eosinophils (%) (Auto) % (0.0-3.0) Basophils (%) (Auto) % (0.0-2.0) Differential Total Cells Counted 100 Neutrophils % (Manual) 90 % (45-75) H Lymphocytes % (Manual) 8 % (20-45) L Monocytes % (Manual) 2 % (1-10) Eosinophils % (Manual) 0 % (0-3) Basophils % (Manual) 0 % (0-2) Band Neutrophils 0 % (0-8) Platelet Estimate Adequate Platelet Morphology Normal Activated Partial Thromboplast Time 26 SEC (23-33) Sodium Level 136 MMOL/L (136-145) Potassium Level 4.5 MMOL/L (3.5-5.1) Chloride Level 103 MMOL/L (98-107) Carbon Dioxide Level 23 MMOL/L (21-32) Anion Gap 10 mmol/L (5-15) Blood Urea Nitrogen 18 mg/dL (7-18) Creatinine 1.4 MG/DL (0.55-1.30) H Estimat Glomerular Filtration Rate 52.8 mL/min (>60) Glucose Level 143 MG/DL (74-106) H Calcium Level 8.8 MG/DL (8.5-10.1) Total Bilirubin 1.1 MG/DL (0.2-1.0) H Direct Bilirubin 0.2 MG/DL (0.0-0.3) Aspartate Amino Transf (AST/SGOT) 56 U/L (15-37) H Alanine Aminotransferase (ALT/SGPT) 87 U/L (12-78) H Alkaline Phosphatase 49 U/L (46-116) Total Protein 7.3 G/DL (6.4-8.2) Albumin 3.8 G/DL (3.4-5.0) Globulin 3.5 g/dL Albumin/Globulin Ratio 1.1 (1.0-2.7) Amylase Level 48 U/L (25-115) Lipase 80 U/L (73-393) Current Medications Medications (Trade) Dose Ordered Sig/Zaid Route PRN Reason Start Time Stop Time Status Last Admin Dose Admin Acetaminophen (Tylenol) 650 mg Q4H PRN ORAL fever 09/14/17 13:30 10/14/17 13:29 09/14/17 15:07 Acetaminophen (Tylenol) 650 mg Q4H PRN RECTAL Mild Pain (Pain Scale 1-3) 09/14/17 19:30 10/14/17 19:29 Al Hydroxide/Mg Hydroxide (Mylanta II) 30 ml Q6H PRN ORAL dyspepsia 09/14/17 13:30 10/14/17 13:29 Bisacodyl (Dulcolax) 10 mg ONCE ONCE RECTAL 09/15/17 10:30 09/15/17 10:31 Clonidine HCl (Catapres) 0.1 mg Q6HR PRN ORAL SBP > 160 09/14/17 16:15 10/14/17 16:14 09/14/17 16:48 Dextrose (Dextrose 50%) STAT PRN IV Hypoglycemia 09/14/17 13:30 10/14/17 13:29 Dextrose/Sodium Chloride 1,000 ml @ 75 mls/hr [id number] IV 09/14/17 17:40 10/14/17 17:39 09/15/17 07:08 Diphenhydramine HCl (Benadryl) 25 mg Q6H PRN ORAL Itching/Pruritis 09/14/17 13:30 10/14/17 13:29 Heparin Sodium (Porcine) (Heparin 5000 units/ml) 5,000 units EVERY 12 HOURS SUBQ 09/14/17 21:00 10/14/17 20:59 09/15/17 08:34 Hydromorphone HCl (Dilaudid) 1 mg Q4H PRN IVP For Pain 09/14/17 19:30 09/21/17 19:29 Losartan Potassium (Cozaar) 100 mg DAILY ORAL 09/15/17 09:00 10/15/17 08:59 09/15/17 08:26 Metoclopramide HCl (Reglan) 10 mg EVERY 8 HOURS IM 09/14/17 22:00 10/14/17 21:59 09/15/17 06:36 Morphine Sulfate (Morphine Sulfate) 4 mg Q4H PRN IVP For Pain 09/14/17 14:15 09/21/17 14:14 09/15/17 00:19 Nitroglycerin (Ntg) 0.4 mg Q5M X 3 DOSES PRN SL Prn Chest Pain 09/14/17 13:30 10/14/17 13:29 Ondansetron HCl (Zofran) 4 mg Q6H PRN IVP Nausea & Vomiting 09/14/17 13:30 10/14/17 13:29 Pantoprazole (Protonix) 40 mg DAILY IVP 11/9/17 20:00 10/14/17 19:59 09/15/17 08:27 Piperacillin/ Tazobactam/ Dextrose 50 ml @ 12.5 mls/hr Q8H IVPB 09/14/17 16:00 09/21/17 15:59 09/15/17 08:27 Polyethylene Glycol (Miralax) 17 gm HSPRN PRN ORAL Constipation 09/14/17 13:30 10/14/17 13:29 Temazepam (Restoril) 15 mg HSPRN PRN ORAL Insomnia 09/14/17 13:30 09/21/17 13:29 TRACY SERVIN M.D. Sep 15, 2017 10:09
[2017-09-15 12:00] VITALS: BP 139/84
--- NOTE | 2017-09-15 12:57 | General Surgery Progress Note ---
General Surgery-Progress Note Subjective Procedure Performed Laparoscopic Cholecystectomy Symptoms: improved Objective Last 24 Hour Vital Signs Date Time Temp Pulse Resp B/P (MAP) Pulse Ox O2 Delivery O2 Flow Rate FiO2 09/15/17 12:00 97.4 73 20 139/84 95 Room Air 09/15/17 08:26 120/75 09/15/17 08:00 98.1 83 20 119/81 99 Nasal Cannula 2.0 09/15/17 07:43 Nasal Cannula 3.0 32 09/15/17 07:43 95 Nasal Cannula 3.0 32 09/15/17 04:00 97.8 69 17 110/66 96 Nasal Cannula 2.0 09/15/17 00:00 97.7 86 18 127/81 96 Nasal Cannula 3.0 09/14/17 21:50 97.1 89 19 150/95 98 Nasal Cannula 3.0 09/14/17 21:20 97.5 82 19 134/91 96 Nasal Cannula 3.0 09/14/17 21:05 97.4 86 19 135/96 96 Nasal Cannula 3.0 09/14/17 20:50 97.3 84 19 134/88 97 Nasal Cannula 3.0 09/14/17 20:35 97.2 85 19 140/92 93 Nasal Cannula 2.0 09/14/17 20:25 98.0 93 19 139/89 95 Nasal Cannula 3.0 09/14/17 20:15 94 16 142/85 96 Nasal Cannula 3.0 09/14/17 20:00 Nasal Cannula 3.0 32 09/14/17 20:00 98 18 130/97 96 Nasal Cannula 3.0 09/14/17 20:00 96 Nasal Cannula 3.0 32 09/14/17 19:50 89 16 145/85 97 Nasal Cannula 3.0 09/14/17 19:39 91 15 140/87 97 Nasal Cannula 3.0 09/14/17 19:34 92 16 136/79 98 Simple Mask 6.0 09/14/17 19:29 99.0 108 17 113/84 95 Simple Mask 6.0 09/14/17 19:29 109 16 94 09/14/17 16:48 161/116 09/14/17 16:16 99.0 104 21 161/116 96 Room Air 09/14/17 16:06 99.0 09/14/17 13:20 100.8 96 20 150/89 95 Room Air 09/14/17 12:58 97.7 95 16 165/96 96 Room Air I&O Intake and Output 09/15/17 09/16/17 19:00 07:00 Intake Total 350 ml Balance 350 ml Intake Oral 350 ml Dressing: dry Respiratory: clear Abdomen: soft, flat, non-tender, present bowel sounds Extremities: no tenderness Laboratory Tests Test 09/15/17 06:25 White Blood Count 12.0 K/UL (4.8-10.8) H Red Blood Count 4.68 M/UL (4.70-6.10) L Hemoglobin 14.4 G/DL (14.2-18.0) Hematocrit 43.7 % (42.0-52.0) Mean Corpuscular Volume 93 FL (80-99) Mean Corpuscular Hemoglobin 30.7 PG (27.0-31.0) Mean Corpuscular Hemoglobin Concent 32.9 G/DL (32.0-36.0) Red Cell Distribution Width 11.4 % (11.6-14.8) L Platelet Count 205 K/UL (150-450) Mean Platelet Volume 5.7 FL (6.5-10.1) L Neutrophils (%) (Auto) % (45.0-75.0) Lymphocytes (%) (Auto) % (20.0-45.0) Monocytes (%) (Auto) % (1.0-10.0) Eosinophils (%) (Auto) % (0.0-3.0) Basophils (%) (Auto) % (0.0-2.0) Differential Total Cells Counted 100 Neutrophils % (Manual) 90 % (45-75) H Lymphocytes % (Manual) 8 % (20-45) L Monocytes % (Manual) 2 % (1-10) Eosinophils % (Manual) 0 % (0-3) Basophils % (Manual) 0 % (0-2) Band Neutrophils 0 % (0-8) Platelet Estimate Adequate Platelet Morphology Normal Activated Partial Thromboplast Time 26 SEC (23-33) Sodium Level 136 MMOL/L (136-145) Potassium Level 4.5 MMOL/L (3.5-5.1) Chloride Level 103 MMOL/L (98-107) Carbon Dioxide Level 23 MMOL/L (21-32) Anion Gap 10 mmol/L (5-15) Blood Urea Nitrogen 18 mg/dL (7-18) Creatinine 1.4 MG/DL (0.55-1.30) H Estimat Glomerular Filtration Rate 52.8 mL/min (>60) Glucose Level 143 MG/DL (74-106) H Calcium Level 8.8 MG/DL (8.5-10.1) Total Bilirubin 1.1 MG/DL (0.2-1.0) H Direct Bilirubin 0.2 MG/DL (0.0-0.3) Aspartate Amino Transf (AST/SGOT) 56 U/L (15-37) H Alanine Aminotransferase (ALT/SGPT) 87 U/L (12-78) H Alkaline Phosphatase 49 U/L (46-116) Total Protein 7.3 G/DL (6.4-8.2) Albumin 3.8 G/DL (3.4-5.0) Globulin 3.5 g/dL Albumin/Globulin Ratio 1.1 (1.0-2.7) Amylase Level 48 U/L (25-115) Lipase 80 U/L (73-393) Assessment Post-op Diagnosis Hydropse of gallbladder Plan Additional Comments discharge to home EMILY ABREU Sep 15, 2017 12:57
--- NOTE | 2017-09-15 13:01 | Discharge Instructions ---
Discharge Instructions Discharge Instructions Follow up with: my office one week Diet: clear liquid Additional Diet Information: regular low fat as of tomorrow Resume Normal Activity?: Yes Activity: as tolerated For Surgical Patients Clean and Dry: other - leave the dressing May shower: Yes For Congestive Heart Failure Reminder Report to your physician any weight gain of 5 pounds or more in one week. EMILY ABREU Sep 15, 2017 13:01
--- NOTE | 2017-09-15 13:26 | 48 Hour Post Anesthesia Eval ---
Post Anesthesia Evaluation Procedure: Laparoscopic Cholecystectomy Date of Evaluation: Sep 15, 2017 Time of Evaluation: 13:25 Blood Pressure Systolic: 128 0: 68 Pulse Rate: 74 Respiratory Rate: 22 Temperature (Fahrenheit): 97.6 O2 Sat by Pulse Oximetry: 98 Airway: patent Nausea: No Vomiting: No Pain Intensity: 2 Hydration Status: adequate Cardiopulmonary Status: stable Mental Status/LOC: patient returned to baseline Follow-up Care/Observations: n/a Post-Anesthesia Complications: none Follow-up care needed: N/A ARACELI TRINIDAD M.D. Sep 15, 2017 13:26
--- NOTE | 2017-09-15 14:26 | Pulmonology Progress Note ---
Assessment/Plan Problems: (1) Cholecystitis (2) Intractable abdominal pain (3) History of hypertension Assessment/Plan tolerated surgery very well wants to go home surgery cleared to dc home today will put the dc order. Subjective ROS Limited/Unobtainable: No Constitutional: Reports: no symptoms HEENT: Repors: no symptoms Respiratory: Reports: no symptoms Allergies: Coded Allergies: No Known Allergies (Unverified , 09/14/17) Objective Last 24 Hour Vital Signs Date Time Temp Pulse Resp B/P (MAP) Pulse Ox O2 Delivery O2 Flow Rate FiO2 09/15/17 13:26 74 22 98 09/15/17 12:00 97.4 73 20 139/84 95 Room Air 09/15/17 08:26 120/75 09/15/17 08:00 98.1 83 20 119/81 99 Nasal Cannula 2.0 09/15/17 07:43 Nasal Cannula 3.0 32 09/15/17 07:43 95 Nasal Cannula 3.0 32 09/15/17 04:00 97.8 69 17 110/66 96 Nasal Cannula 2.0 09/15/17 00:00 97.7 86 18 127/81 96 Nasal Cannula 3.0 09/14/17 21:50 97.1 89 19 150/95 98 Nasal Cannula 3.0 09/14/17 21:20 97.5 82 19 134/91 96 Nasal Cannula 3.0 09/14/17 21:05 97.4 86 19 135/96 96 Nasal Cannula 3.0 09/14/17 20:50 97.3 84 19 134/88 97 Nasal Cannula 3.0 09/14/17 20:35 97.2 85 19 140/92 93 Nasal Cannula 2.0 09/14/17 20:25 98.0 93 19 139/89 95 Nasal Cannula 3.0 09/14/17 20:15 94 16 142/85 96 Nasal Cannula 3.0 09/14/17 20:00 Nasal Cannula 3.0 32 09/14/17 20:00 98 18 130/97 96 Nasal Cannula 3.0 09/14/17 20:00 96 Nasal Cannula 3.0 32 09/14/17 19:50 89 16 145/85 97 Nasal Cannula 3.0 09/14/17 19:39 91 15 140/87 97 Nasal Cannula 3.0 09/14/17 19:34 92 16 136/79 98 Simple Mask 6.0 09/14/17 19:29 99.0 108 17 113/84 95 Simple Mask 6.0 09/14/17 19:29 109 16 94 09/14/17 16:48 161/116 09/14/17 16:16 99.0 104 21 161/116 96 Room Air 09/14/17 16:06 99.0 Intake and Output 09/15/17 09/16/17 19:00 07:00 Intake Total 350 ml Balance 350 ml Intake Oral 350 ml General Appearance: WD/WN HEENT: normocephalic, atraumatic Respiratory/Chest: chest wall non-tender, lungs clear Cardiovascular: normal peripheral pulses, normal rate Abdomen: normal bowel sounds, soft, non tender Genitourinary: normal external genitalia Extremities: no cyanosis Skin: no rash, no lesions Laboratory Tests 09/15/17 06:25: White Blood Count 12.0H, Red Blood Count 4.68L, Hemoglobin 14.4, Hematocrit 43.7 , Mean Corpuscular Volume 93, Mean Corpuscular Hemoglobin 30.7, Mean Corpuscular Hemoglobin Concent 32.9, Red Cell Distribution Width 11.4L, Platelet Count 205, Mean Platelet Volume 5.7L, Neutrophils (%) (Auto) , Lymphocytes (%) (Auto) , Monocytes (%) (Auto) , Eosinophils (%) (Auto) , Basophils (%) (Auto) , Differential Total Cells Counted 100, Neutrophils % ( Manual) 90H, Lymphocytes % (Manual) 8L, Monocytes % (Manual) 2, Eosinophils % ( Manual) 0, Basophils % (Manual) 0, Band Neutrophils 0, Platelet Estimate Adequate, Platelet Morphology Normal, Activated Partial Thromboplast Time 26, Sodium Level 136, Potassium Level 4.5, Chloride Level 103, Carbon Dioxide Level 23, Anion Gap 10, Blood Urea Nitrogen 18, Creatinine 1.4H, Estimat Glomerular Filtration Rate 52.8, Glucose Level 143H, Calcium Level 8.8, Total Bilirubin 1.1H, Direct Bilirubin 0.2, Aspartate Amino Transf (AST/SGOT) 56H, Alanine Aminotransferase (ALT/SGPT) 87H, Alkaline Phosphatase 49, Total Protein 7.3, Albumin 3.8, Globulin 3.5, Albumin/Globulin Ratio 1.1, Amylase Level 48, Lipase 80 Current Medications Medications (Trade) Dose Ordered Sig/Zaid Route PRN Reason Start Time Stop Time Status Last Admin Dose Admin Acetaminophen (Tylenol) 650 mg Q4H PRN ORAL fever 09/14/17 13:30 10/14/17 13:29 09/14/17 15:07 Acetaminophen (Tylenol) 650 mg Q4H PRN RECTAL Mild Pain (Pain Scale 1-3) 09/14/17 19:30 10/14/17 19:29 Al Hydroxide/Mg Hydroxide (Mylanta II) 30 ml Q6H PRN ORAL dyspepsia 09/14/17 13:30 10/14/17 13:29 Clonidine HCl (Catapres) 0.1 mg Q6HR PRN ORAL SBP > 160 09/14/17 16:15 10/14/17 16:14 09/14/17 16:48 Dextrose (Dextrose 50%) STAT PRN IV Hypoglycemia 09/14/17 13:30 10/14/17 13:29 Dextrose/Sodium Chloride 1,000 ml @ 75 mls/hr [id number] IV 09/14/17 17:40 10/14/17 17:39 09/15/17 07:08 Diphenhydramine HCl (Benadryl) 25 mg Q6H PRN ORAL Itching/Pruritis 09/14/17 13:30 10/14/17 13:29 Heparin Sodium (Porcine) (Heparin 5000 units/ml) 5,000 units EVERY 12 HOURS SUBQ 09/14/17 21:00 10/14/17 20:59 09/15/17 08:34 Hydromorphone HCl (Dilaudid) 1 mg Q4H PRN IVP For Pain 09/14/17 19:30 09/21/17 19:29 Losartan Potassium (Cozaar) 100 mg DAILY ORAL 09/15/17 09:00 10/15/17 08:59 09/15/17 08:26 Metoclopramide HCl (Reglan) 10 mg EVERY 8 HOURS IM 09/14/17 22:00 10/14/17 21:59 09/15/17 06:36 Morphine Sulfate (Morphine Sulfate) 4 mg Q4H PRN IVP For Pain 09/14/17 14:15 09/21/17 14:14 09/15/17 00:19 Nitroglycerin (Ntg) 0.4 mg Q5M X 3 DOSES PRN SL Prn Chest Pain 09/14/17 13:30 10/14/17 13:29 Ondansetron HCl (Zofran) 4 mg Q6H PRN IVP Nausea & Vomiting 09/14/17 13:30 10/14/17 13:29 Pantoprazole (Protonix) 40 mg DAILY IVP 09/14/17 20:00 10/14/17 19:59 09/15/17 08:27 Piperacillin/ Tazobactam/ Dextrose 50 ml @ 12.5 mls/hr Q8H IVPB 09/14/17 16:00 09/15/17 23:00 09/15/17 08:27 Polyethylene Glycol (Miralax) 17 gm HSPRN PRN ORAL Constipation 09/14/17 13:30 10/14/17 13:29 Temazepam (Restoril) 15 mg HSPRN PRN ORAL Insomnia 09/14/17 13:30 09/21/17 13:29 RACH NIELSON Sep 15, 2017 14:26
--- NOTE | 2017-09-15 14:40 | GI Progress Note ---
Assessment/Plan Problems: (1) Cholecystitis ICD Codes: K81.9 - Cholecystitis, unspecified SNOMED: 78411913 (2) History of hypertension ICD Codes: Z86.79 - Personal history of other diseases of the circulatory system SNOMED: 256341680 (3) Cholelithiasis ICD Codes: K80.20 - Calculus of gallbladder without cholecystitis without obstruction SNOMED: 301890146 (4) Intractable abdominal pain ICD Codes: R10.9 - Unspecified abdominal pain SNOMED: 25465303, 747259520 Status: stable Status Narrative Discussed with Dr. Vaughn. Assessment/Plan fu surgical recs >> pt scheduled for lap fidel today CLD, adv per surgery pain mgmt cont ppi bowel regime fu labs outpatient GI procedures Subjective Gastrointestinal/Abdominal: Reports: abdominal pain - surgical pain Objective Last 24 Hour Vital Signs Date Time Temp Pulse Resp B/P (MAP) Pulse Ox O2 Delivery O2 Flow Rate FiO2 09/15/17 13:26 74 22 98 09/15/17 12:00 97.4 73 20 139/84 95 Room Air 09/15/17 08:26 120/75 09/15/17 08:00 98.1 83 20 119/81 99 Nasal Cannula 2.0 09/15/17 07:43 Nasal Cannula 3.0 32 09/15/17 07:43 95 Nasal Cannula 3.0 32 09/15/17 04:00 97.8 69 17 110/66 96 Nasal Cannula 2.0 09/15/17 00:00 97.7 86 18 127/81 96 Nasal Cannula 3.0 09/14/17 21:50 97.1 89 19 150/95 98 Nasal Cannula 3.0 09/14/17 21:20 97.5 82 19 134/91 96 Nasal Cannula 3.0 09/14/17 21:05 97.4 86 19 135/96 96 Nasal Cannula 3.0 09/14/17 20:50 97.3 84 19 134/88 97 Nasal Cannula 3.0 09/14/17 20:35 97.2 85 19 140/92 93 Nasal Cannula 2.0 09/14/17 20:25 98.0 93 19 139/89 95 Nasal Cannula 3.0 09/14/17 20:15 94 16 142/85 96 Nasal Cannula 3.0 09/14/17 20:00 Nasal Cannula 3.0 32 09/14/17 20:00 98 18 130/97 96 Nasal Cannula 3.0 09/14/17 20:00 96 Nasal Cannula 3.0 32 09/14/17 19:50 89 16 145/85 97 Nasal Cannula 3.0 09/14/17 19:39 91 15 140/87 97 Nasal Cannula 3.0 09/14/17 19:34 92 16 136/79 98 Simple Mask 6.0 09/14/17 19:29 99.0 108 17 113/84 95 Simple Mask 6.0 09/14/17 19:29 109 16 94 09/14/17 16:48 161/116 09/14/17 16:16 99.0 104 21 161/116 96 Room Air 09/14/17 16:06 99.0 Intake and Output 09/15/17 09/16/17 19:00 07:00 Intake Total 700 ml Balance 700 ml Intake Oral 700 ml # Voids 1 Laboratory Tests Test 09/15/17 06:25 White Blood Count 12.0 K/UL (4.8-10.8) H Red Blood Count 4.68 M/UL (4.70-6.10) L Hemoglobin 14.4 G/DL (14.2-18.0) Hematocrit 43.7 % (42.0-52.0) Mean Corpuscular Volume 93 FL (80-99) Mean Corpuscular Hemoglobin 30.7 PG (27.0-31.0) Mean Corpuscular Hemoglobin Concent 32.9 G/DL (32.0-36.0) Red Cell Distribution Width 11.4 % (11.6-14.8) L Platelet Count 205 K/UL (150-450) Mean Platelet Volume 5.7 FL (6.5-10.1) L Neutrophils (%) (Auto) % (45.0-75.0) Lymphocytes (%) (Auto) % (20.0-45.0) Monocytes (%) (Auto) % (1.0-10.0) Eosinophils (%) (Auto) % (0.0-3.0) Basophils (%) (Auto) % (0.0-2.0) Differential Total Cells Counted 100 Neutrophils % (Manual) 90 % (45-75) H Lymphocytes % (Manual) 8 % (20-45) L Monocytes % (Manual) 2 % (1-10) Eosinophils % (Manual) 0 % (0-3) Basophils % (Manual) 0 % (0-2) Band Neutrophils 0 % (0-8) Platelet Estimate Adequate Platelet Morphology Normal Activated Partial Thromboplast Time 26 SEC (23-33) Sodium Level 136 MMOL/L (136-145) Potassium Level 4.5 MMOL/L (3.5-5.1) Chloride Level 103 MMOL/L (98-107) Carbon Dioxide Level 23 MMOL/L (21-32) Anion Gap 10 mmol/L (5-15) Blood Urea Nitrogen 18 mg/dL (7-18) Creatinine 1.4 MG/DL (0.55-1.30) H Estimat Glomerular Filtration Rate 52.8 mL/min (>60) Glucose Level 143 MG/DL (74-106) H Calcium Level 8.8 MG/DL (8.5-10.1) Total Bilirubin 1.1 MG/DL (0.2-1.0) H Direct Bilirubin 0.2 MG/DL (0.0-0.3) Aspartate Amino Transf (AST/SGOT) 56 U/L (15-37) H Alanine Aminotransferase (ALT/SGPT) 87 U/L (12-78) H Alkaline Phosphatase 49 U/L (46-116) Total Protein 7.3 G/DL (6.4-8.2) Albumin 3.8 G/DL (3.4-5.0) Globulin 3.5 g/dL Albumin/Globulin Ratio 1.1 (1.0-2.7) Amylase Level 48 U/L (25-115) Lipase 80 U/L (73-393) Height (Feet): 6 Height (Inches): 2.00 Weight (Pounds): 245 General Appearance: WD/WN, no apparent distress, alert Cardiovascular: normal rate Respiratory/Chest: normal breath sounds, no respiratory distress Abdominal Exam: normal bowel sounds, non tender, soft, incision site Extremities: normal range of motion, non-tender Tyesha Hawthorne N.PAnnalisa Sep 15, 2017 14:40
[2017-09-15 16:00] VITALS: BP 136/86
[2017-09-15] MEDS ORDERED: Tubing IV Secondary IV ONE (16:59)
[2017-09-15] MEDS ORDERED: D5 1/2NS 1000ml IV ONE (16:59)
--- NOTE | 2017-09-15 22:55 | Discharge Summary ---
Discharge Summary Hospital Course Date of Admission Sep 14, 2017 at 09:24 Date of Discharge Sep 15, 2017 at 17:00 Admitting Diagnosis intractible abdominal pain, Cholelithisis ALEXIS Zamora is a 56 year old male who was admitted on Sep 14, 2017 at 09:24 for Intractible Abdominal Pain,Cholelithiasis Hospital Course The patient was seen and examined at bedside, No chest or SOB, less abdominal pain. Last 24 Hour Vital Signs Date Time Temp Pulse Resp B/P (MAP) Pulse Ox O2 Delivery O2 Flow Rate FiO2 09/15/17 16:00 97.8 85 20 136/86 97 Room Air 09/15/17 13:26 74 22 98 09/15/17 12:00 97.4 73 20 139/84 95 Room Air 09/15/17 08:26 120/75 09/15/17 08:00 98.1 83 20 119/81 99 Nasal Cannula 2.0 09/15/17 07:43 Nasal Cannula 3.0 32 09/15/17 07:43 95 Nasal Cannula 3.0 32 09/15/17 04:00 97.8 69 17 110/66 96 Nasal Cannula 2.0 09/15/17 00:00 97.7 86 18 127/81 96 Nasal Cannula 3.0 General: No acute distress, awake and alert HEENT: NCAT, sclera anicteric, PERRL, EOMI. Neck: Supple, no significant jugular venous distention, Lungs: Good inspiratory effort, clear to auscultation bilaterally, no Wheeze or Rales. Heart: Regular rate and rhythm, normal S1/S2, no murmur Abdomen: soft, nontender, nondistended. Normoactive bowel sounds. Morbid obesity , surgical incision intact / Rectal: Refused and deferred. Extremities: No Cyanosis , clubbing or edema. Neuro: A&O x 3, Able to move all extremities Skin: warm, no rashes or lesions discharge summery dictated (Patient was seen earlier today. Signature timestamp does not reflect patient encounter time) Kwame Cassidy MD Discharge Discharge Disposition Patient was discharged to Home (01) Discharge Diagnoses: Discharge Instructions Discharge Instructions Follow up with: my office one week Additional Diet Information: regular low fat as of tomorrow Activity: as tolerated For Surgical Patients Clean and Dry: other - leave the dressing May shower: Yes Kwame Cassidy MD Sep 15, 2017 22:55
--- NOTE | 2017-09-17 | Discharge Summary ---
DATE OF ADMISSION: 09/14/2017 DATE OF DISCHARGE: 09/15/2017 BRIEF HISTORY AND HOSPITAL COURSE: This is a 56-year-old gentleman with past medical history significant for hypertension, dyslipidemia, and morbid obesity, who was presented to the hospital complaining of bilateral upper quadrant pain associated with nausea and no vomiting. Shortly after initial evaluation in emergency room, the patient was confirmed to have cholelithiasis, diagnosed on CT scan, and then subsequently, the patient was consulted with Dr. Chand, Pulmonary and Critical Care as well as Dr. Jaimes from General Surgery, and Dr. Sibley from Infectious Disease and Dr. Vaughn from Gastroenterology. The patient underwent laparoscopic cholecystectomy and was noted to have hydrops with impacted stone in the neck of the gallbladder and the patient tolerated the procedure well. Postoperatively, there were no complications. The patient subsequently was discharged home to be followed up as an outpatient with Dr. Jaimes. FINAL DIAGNOSES: 1. Abdominal pain, most likely secondary to cholecystitis and cholelithiasis. 2. Morbid obesity. 3. Hypertension. 4. Dyslipidemia. MEDICATIONS ON DISCHARGE: Continue discharge medication list. ACTIVITY: As tolerated. DIET: Low residual diet, advance as tolerated. Kwame Cassidy M.D. DR: Yves JOB#: [id number] CC:
--- NOTE | 2017-09-24 16:21 | Cardiology Report ---
APPROVED REPORT EKG Measurement Heart [id number] MA 180P-1 [id number] Normal sinus rhythm Normal ECG
== END 2017-09-15 17:00 | disposition home or self-care (01) | DRG 418 ==
LOC: EMR 07:33 → 3E 09:24 → EDBEDREQ 10:14
PROC: 0FT44ZZ Resection of Gallbladder, Percutaneous Endoscopic Approach (ICD-10-PCS; principal; 2017-09-14 16:30)
DX: K80.10 Calculus of gallbladder with chronic cholecystitis without obstruction (principal); K82.1 Hydrops of gallbladder; I10 Essential (primary) hypertension; E66.01 Morbid (severe) obesity due to excess calories; E78.5 Hyperlipidemia, unspecified
CPT/HCPCS: 36415; 71010; 74177; 80053; 82150; 82248; 82550; 82553; 83690; 84484; 85007; 85025; 85610; 85730; 87070; 87205; 93005; 94003; 94150; 94760; 99285; J2405; J2710; J2765; J3490